=== PATIENT | female | born 1990 | race Caucasian/White ===

== ENCOUNTER 2017-02-10 10:28 | Emergency (ER) | payer OTHER ==
[2017-02-10 10:58] VITALS: BP 125/62; PULSE 78; RESP 18; TEMP 98; O2SAT 98
--- NOTE | 2017-02-10 11:02 | UCPHY ---
H & P Time Seen by Provider: 02/10/17 10:52 Patient Type: New HPI/ROS: This patient cleaned her ear with a Q-tip after showering had the impression that she still had some cotton stuck in her ear on the right side. This its did occurred earlier in the day. She denies any significant discomfort only a persistent foreign body feeling. She notes no exacerbating factors. ROS: No fevers. No drainage from the ear. She had no antecedent ear symptoms or cold symptoms. 5 point ROS is otherwise negative. Past Medical/Surgical History: Otherwise healthy Smoking Status: Never smoked Physical Exam: Physical Exam Vital signs are normal. General: No acute distress HEENT: Right external canal and TM are normal left external canal and TM appear normal nose: Clear oropharynx: Clear Eyes: Pupils equal and react to light. Extraocular motions are intact. Cardiac: Brisk capillary refill is intact throughout. Skin: No rash or pallor. Neuro: Alert and oriented Constitutional: Initial Vital Signs Temperature (C) 36.6 C 02/10/17 10:56 Heart Rate 78 02/10/17 10:56 Respiratory Rate 18 02/10/17 10:56 Blood Pressure 125/62 H 02/10/17 10:56 O2 Sat (%) 98 02/10/17 10:56 O2 Delivery Mode Room Air Allergies/Adverse Reactions: No Known Allergies Allergy (Unverified 02/10/17 10:55) Home Medications: Medication Instructions Recorded NK [No Known Home Meds] 02/10/17 Medical Decision Making ED Course/Re-evaluation: Discussion: I suspect this patient has a mild superficial abrasion from the cleaning of her ear that felt like a foreign body but there is no foreign body on exam. Departure - Departure Disposition: Home, Routine, Self-Care Clinical Impression: Ear canal abrasion Qualifiers: Encounter type: initial encounter Laterality: right Qualified Code(s): S00.411A - Abrasion of right ear, initial encounter Condition: Good Additional Instructions: Diagnosis: Foreign body sensation right ear Plan: There is no longer any cotton or other foreign bodies ear. I suspect he had the symptoms due to a very minor abrasion from using the Q-tip. Return only if needed if you develop significant ear pain or other concerns. Referrals: NONE *PRIMARY CARE P,. [Primary Care Provider] - As per Instructions - PQRS PQRS Measurement: NA
== END 2017-02-10 11:10 | disposition home or self-care (01) ==
LOC: CED 10:28
DX: H93.91 Unspecified disorder of right ear (principal)
CPT/HCPCS: G0463-PO